=== PATIENT | female | born 1990 | race Caucasian/White ===

== ENCOUNTER 2019-10-29 20:21 | Emergency (ER) | payer SELFPAY ==
[~2019-10-29] VITALS: Ht 165.1 cm; Wt 95.9 kg
[2019-10-29 20:35] VITALS: Ht 165.1 cm; Wt 95.9 kg
[2019-10-29] MEDS ORDERED: KENALOG 0.1 % 115 GM TOPICAL (21:09)
[2019-10-29] MEDS ORDERED: KEFLEX500 MG PO (21:09)
[2019-10-29] MEDS ORDERED: BENADRYL25 MG PO (21:10)
[2019-10-29 21:26] VITALS: BP 122/75
== END 2019-10-29 21:24 | disposition home or self-care (01) ==
LOC: D.ER 20:21
DX: S00.96XA Insect bite (nonvenomous) of unspecified part of head, initial encounter (principal); S40.862A Insect bite (nonvenomous) of left upper arm, initial encounter; S40.861A Insect bite (nonvenomous) of right upper arm, initial encounter; S80.862A Insect bite (nonvenomous), left lower leg, initial encounter; S80.861A Insect bite (nonvenomous), right lower leg, initial encounter; S30.861A Insect bite (nonvenomous) of abdominal wall, initial encounter; W57.XXXA Bitten or stung by nonvenomous insect and other nonvenomous arthropods, initial encounter; Y93.9 Activity, unspecified; Y92.9 Unspecified place or not applicable